=== PATIENT | female | born 1965 | race Caucasian/White ===

== ENCOUNTER 2017-02-16 06:17 | Observation (INO) | payer OTHER ==
--- NOTE | ~2017-02-16 | HP ---
History And Physical [id number] [place]. [address] NAME: REJI WORRELL : 65 STATUS : ADM Bharath PAT#: [id number] AGE: 52 ADM/REG DATE : 02/16/17 MR#: [id number] REPORT SERV DATE: 02/16/17 DICTATED BY: LAURA SAWYER DATE: 02/16/17 REPORT STATUS : Draft TRANSCRIBED BY: MODL DATE: 02/16/17 DATE OF ADMISSION: 02/16/2017 PRIMARY CARE PROVIDER: Isidro Barkley MD at [facility]. LACE WEAVER: Mathew Lemus MD, [place], [place] CHIEF COMPLAINT: Sharp atypical chest pain. HISTORY OF PRESENT ILLNESS: A very pleasant 52-year-old white female with no known history of CAD, states that she was awakened this morning around 0300 with a "sharp" right-sided chest pain and some throat fullness. She felt as if it was "gas." She did take her Dexilant this morning. She has rated the chest pain as 7/10. At the time of interview in the [facility], it is a 2/10. She states the discomfort has waxed and waned throughout the morning. She reports associated shortness of breath, nausea, diaphoresis, and dizziness. Denies any belching. She reports that she had a hamburger, Divehi fries, and a milk shake for dinner last evening. The patient denies any personal history of myocardial infarction, stroke, DVT, or pulmonary embolus. Treated for sinusitis 3 weeks ago. Denies palpitations. No syncopal episodes. Denies PND or orthopnea. PAST MEDICAL HISTORY: 1. Graves disease. 2. Hypothyroid, on replacement. 3. GERD. 4. "Fatty liver," undergoing current workup. 5. Denies hypertension, dyslipidemia or diabetes. 6. Asthma. 7. Positive family history for early CAD. 8. Remote tobacco abuse. PAST SURGICAL HISTORY: Hysterectomy and cholecystectomy. SOCIAL HISTORY: She is , with four children. She cleans houses. She does not have a structured exercise routine. Quit smoking 15 years ago. Denies alcohol or illicits. FAMILY HISTORY: Father with bypass at 38, of a heart attack at 75. Brother with a heart attack in his 30s, of a cerebral hemorrhage in his 30s. A paternal uncle who is a twin of her father at the age of 38 of a heart attack. REVIEW OF SYSTEMS: A 14-point review of systems performed, significant for HPI. No other contributory diagnoses identified. ALLERGIES: DOXYCYCLINE; IV CONTRAST CAUSES HIVES; MECLIZINE, NAUSEA, VOMITING. History And Physical [address] [place]. [address] NAME: REJI WORRELL : 65 STATUS : ADM Bharath PAT#: [id number] AGE: 52 ADM/REG DATE : 02/16/17 MR#: [id number] REPORT SERV DATE: 02/16/17 DICTATED BY: LAURA SAWYER DATE: 02/16/17 REPORT STATUS : Draft TRANSCRIBED BY: MOLLY DATE: 02/16/17 HOME MEDICATIONS: Per patient's report: Dexilant, thyroid, Singulair, Zyrtec-D, vitamin D, Carafate, albuterol inhaler, and estrogen. PHYSICAL EXAMINATION: VITAL SIGNS: Blood pressure 152/73, pulse 73, respirations 16, temperature 98.3, and O2 saturation 99% on room air. GENERAL: Cooperative, in no apparent distress. HEENT: Pupils 2 mm, sclera nonicteric. Nares patent. Moist mucous membranes. No xanthelasma. NECK: Trachea midline, no thyromegaly. No JVD. No bruits. LYMPH: No cervical lymphadenopathy. No supraclavicular lymphadenopathy. RESPIRATORY: Unlabored respirations. Breath sounds clear bilaterally to posterior auscultation. No wheezes or rhonchi. CARDIOVASCULAR: Regular rate. No murmur, rub or gallop appreciated. Extremities without edema. Pulses 2+ bilaterally. ABDOMEN: Obese. Distended. Mid to right upper quadrant tenderness to mild palpation on exam. SKIN: Warm, dry extremities. No pallor, or cyanosis. PSYCHIATRIC: Appropriate affect. Alert, oriented x3. LABORATORY DATA: Troponin less than 0.02, second pending. TSH 9.680. Potassium 3.5, BUN 13, creatinine 0.83, and glucose 105. Magnesium 2.0. Lipase 125. WBC 11.5, hemoglobin 13.3, hematocrit 38.3, platelet count 232,000. EKG, sinus rhythm. CT of abdomen and pelvis: No acute abnormality. Diverticulosis with no inflammation. ASSESSMENT AND PLAN: 1. Chest pain. The patient will be observed in the [facility] to rule out myocardial infarction per protocol with serial enzymes and serial EKGs. Second of each pending. N.p.o. for now for proposed MPI later today. The patient will be discharged home if low risk, no ischemia. If anything suggestive of ischemia, Cardiology referral will be initiated. Otherwise, the patient will be asked to follow up with her PCP in one to two weeks with all studies being sent to that office. 2. Gastroesophageal reflux disease. Continue home medications. 3. Right upper quadrant tenderness. A CT of abdomen and pelvis negative. The patient currently being worked up for cirrhosis and/or fatty liver on an outpatient basis. States she has an MRI scheduled for in the near future. LEN/MOLLY Laura Sawyer, MSN, DIRECTOR [employer] / [id number] History And Physical [address] [address] NAME: REJI WORRELL : 65 STATUS : ADM Bharath PAT#: [id number] AGE: 52 ADM/REG DATE : 02/16/17 MR#: [id number] REPORT SERV DATE: 02/16/17 DICTATED BY: LAURA SAWYER DATE: 02/16/17 REPORT STATUS : Draft TRANSCRIBED BY: MODL DATE: 02/16/17 CC: Laura Sawyer, MSN, DIRECTOR [employer]
[2017-02-16 06:11] LABS: BASOPHILS 0.3 %; BASOPHILS ABSOLUTE 0.03 10/3/uL (0.0-0.16); EOSINOPHILS 1.1 %; EOSINOPHILS ABSOLUTE 0.13 10/3/uL (0.0-0.53); HEMATOCRIT 38.3 % (36.0-48.0); HEMOGLOBIN 13.3 g/dL (12.0-16.0); IMMATURE GRANULOCYTES 0.4 %; IMMATURE GRANULOCYTES ABSOLUTE 0.05 10/3/uL (0.0-0.11); LYMPHOCYTES 9.4 %; LYMPHOCYTES ABSOLUTE 1.08 10/3/uL (0.67-4.30); MEAN CORPUS HGB CONC 34.7 g/dL (32.0-36.0); MEAN CORPUSCULAR HEMOGLOB 30.9 pg (26.0-34.0); MEAN CORPUSCULAR VOLUME 88.9 fL (80-100); MEAN PLATELET VOLUME 9.9 fL (9.2-13.0); MONOCYTES 4.3 %; MONOCYTES ABSOLUTE 0.49 10/3/uL (0.21-1.20); NEUTROPHILS 84.5 %; NEUTROPHILS ABSOLUTE 9.68 10/3/uL (2.02-8.40); PLATELET COUNT 232 10/3/uL (150-400); RBC DISTRIBUTION WIDTH 13.2 % (12.0-16.0); RED CELL COUNT 4.31 10/6/uL (4.0-5.6); WHITE BLOOD CELLS 11.5 10/3/uL (4.5-10.5)
[2017-02-16 06:12] LABS: MANUAL DIFF NO %
[2017-02-16 06:18] LABS: INTERNATIONAL NORMAL RATI 1.2 UNITS (-); PROTIME (NOT ORD) 14.8 SEC (12.0-14.5)
[2017-02-16 06:19] LABS: PARTIAL THROMBO TIME 33.1 SEC (22.5-37.2)
[2017-02-16 06:36] LABS: BUN (BLOOD UREA NITROGEN) 13 MG/DL (6-23); CALCIUM, SERUM 8.8 MG/DL (8.5-10.4); CHEST PAIN PROFILE TAT 0 Hrs 29 Mins; CHLORIDE, SERUM 107 MMOL/L (96-112); CO2 (CARBON DIOXIDE) 23 MMOL/L (24-34); CREATININE 0.83 MG/DL (0.55-1.02); GFR AFRICAN AMERICAN 94 ML/MIN (>=60); GFR NON AFRICAN AMERICAN 81 ML/MIN (>=60); GLUCOSE, SERUM 105 MG/DL (60-99); POTASSIUM, SERUM 3.5 MMOL/L (3.5-5.3); SODIUM, SERUM 142 MMOL/L (135-148); TROPONIN I <0.02 NG/ML (<0.05)
[2017-02-16 06:48] LABS: ALBUMIN 3.5 G/DL (3.5-5.0); ALKALINE PHOSPHATASE 85 U/L (45-117); DIRECT BILIRUBIN < 0.1 MG/DL (0.0-0.4); INDIRECT BILIRUBIN(NOT ORDER) 0.4 MG/DL (0.1-0.9); SGOT(AST) 13 U/L (5-40); SGPT(ALT) 17 U/L (5-65); TOTAL BILIRUBIN 0.5 MG/DL (0-1.2); TOTAL PROTEIN 7.2 G/DL (6.0-8.5)
[2017-02-16] MEDS ORDERED: KAPIDEX60 MG PO (09:09)
[2017-02-16] MEDS ORDERED: SINGULAIR1 PO (09:09)
[2017-02-16] MEDS ORDERED: SYN075 PO (09:09)
[2017-02-16] MEDS ORDERED: VITAMIN D1000 UNI1 PO (09:10)
[2017-02-16] MEDS ORDERED: ZYRTEC ALLGY10 MG PO (09:10)
[2017-02-16] MEDS ORDERED: BALZIVA IJ (09:13)
[2017-02-16] MEDS ORDERED: SUCR PO (09:13)
[2017-02-16] MEDS ORDERED: VENTOLIN HFA INH (09:15)
[2017-02-16] MEDS ORDERED: FLONASE NAS (09:16)
[2017-02-16] MEDS ORDERED: FLOVENT110 INH (09:16)
[2017-02-16] MEDS ORDERED: ASTELIN NAS (09:17)
== END 2017-02-16 14:24 | disposition home or self-care (01) ==
LOC: ER 06:17 → CDU1 08:27
PROVIDERS: Nurse Practitioner
DX: R07.9 Chest pain, unspecified (principal); K21.9 Gastro-esophageal reflux disease without esophagitis; E03.9 Hypothyroidism, unspecified; Z87.891 Personal history of nicotine dependence; K76.0 Fatty (change of) liver, not elsewhere classified; J45.909 Unspecified asthma, uncomplicated; Z90.710 Acquired absence of both cervix and uterus; Z90.49 Acquired absence of other specified parts of digestive tract; Z88.8 Allergy status to other drugs, medicaments and biological substances; Z91.041 Radiographic dye allergy status; Z88.0 Allergy status to penicillin; Z88.2 Allergy status to sulfonamides; Z79.3 Long term (current) use of hormonal contraceptives; Z79.51 Long term (current) use of inhaled steroids; Z79.899 Other long term (current) drug therapy
CPT/HCPCS: 71010; 74176; 78452; 80048; 80076; 83690; 83735; 84443; 84484; 85025; 85610; 85730; 93005; 93017; 99285; A9270-GY; A9502; G0378